=== PATIENT | male | born 1970 | race Caucasian/White ===

== ENCOUNTER 2022-12-18 13:14 | Inpatient (IN) | payer OTHER ==
[2022-12-18 14:01] VITALS: BMI 25.8
[2022-12-18] MEDS ORDERED: LOPERAMIDE HCL 2 MG CAPSULE PO PRN (17:28)
[2022-12-18] MEDS ORDERED: BISMUTH SUBSALICYLATE 524 MG/30 ML PO PRN (17:28)
[2022-12-18] MEDS ORDERED: P-EPHED 60MG/TRIPROLIDI 2.5MG TABLET PO PRN (17:28)
[2022-12-18] MEDS ORDERED: ONDANSETRON *ODT* 4 MG TABLET SL PRN (17:28)
[2022-12-18] MEDS ORDERED: MAGNESIUM HYDROX 2400MG/30ML ORAL SUSPENSION 30 ML CUP PO PRN (17:28)
[2022-12-18] MEDS ORDERED: guaiFENesin 600 MG TABLET.ER (FP) PO PRN (17:28)
[2022-12-18] MEDS ORDERED: MAG HYDROX/AL HYDROX/SIMETH 30 ML UNIT-DOSE CUP PO PRN (17:28)
[2022-12-18] MEDS ORDERED: IBUPROFEN 600 MG TABLET (FP) PO PRN (17:28)
[2022-12-18] MEDS ORDERED: BENZOCAINE/MENTHOL (CHLORASEPTIC ) LOZENGE MM PRN (17:28)
[2022-12-18] MEDS ORDERED: NICOTINE POLACRILEX 2 MG GUM BUC PRN (17:28)
[2022-12-18] MEDS ORDERED: POLYETHYLENE GLYCOL (HEALTHYLAX) 3350 17 GM PACKET PO PRN (17:28)
[2022-12-18] MEDS ORDERED: IBUPROFEN 400 MG TABLET (FP) PO PRN (17:28)
[2022-12-18] MEDS ORDERED: BENZONATATE 200 MG CAPSULE PO PRN (17:28)
[2022-12-18] MEDS ORDERED: ACETAMINOPHEN 325 MG TABLET (FP) PO PRN (17:28)
[2022-12-18] MEDS ORDERED: DICYCLOMINE HCL 10 MG CAPSULE PO PRN (17:28)
[2022-12-18] MEDS: LIDOCAINE PATCH REMOVAL MC SCH (21:27)
[2022-12-18] MEDS: THIAMINE HCL 100 MG TABLET (FP) PO SCH (22:16)
[2022-12-18] MEDS: MELATONIN 5 MG TABLETS PO SCH (22:16)
[2022-12-18] MEDS: METHOCARBAMOL 500 MG TABLET PO PRN (22:17)
[2022-12-19] MEDS ORDERED: diazePAM 5 MG TABLET PO PRN (09:16)
[2022-12-19] MEDS: LIDOCAINE 5% TOPICAL PATCH TP SCH (10:18)
[2022-12-19] MEDS: PRENATAL VITAMINS W/ FOLIC ACID TABLET (FP) PO SCH (10:18)
[2022-12-19] MEDS: NICOTINE 14 MG/24 HOURS TOPICAL PATCH TD SCH (10:19)
[2022-12-19] MEDS: diazePAM 5 MG TABLET PO SCH ×3 (10:28→22:11)
[2022-12-19 11:58] LABS: POTASSIUM 4.3 mmol/L (3.5-5.1)
[2022-12-19 11:59] LABS: HEMATOCRIT 45.4 % (35.4-49); HEMOGLOBIN 15.5 GM/dL (11.7-16.9); MCH 30.9 pg (25.7-33.7); MCHC 34.2 g/dl (32.0-35.9); MEAN CELL VOLUME 90.5 fl (80-96); MEAN PLT VOLUME 8.5 fl (7.5-11.1); PLATELET COUNT 295 10^3/uL (134-434); RBC 5.02 M/mm3 (4.00-5.60); RDW 14.2 % (11.9-15.9)
[2022-12-19 12:04] LABS: CALCIUM 8.9 mg/dL (8.5-10.1)
[2022-12-19 12:05] LABS: ALBUMIN 3.5 g/dl (3.4-5.0); BLOOD UREA NITROGEN 14.6 mg/dL (7-18)
[2022-12-19 12:08] LABS: CREATININE 0.7 mg/dL (0.55-1.3)
[2022-12-19 12:09] LABS: BILIRUBIN,TOTAL 0.6 mg/dL (0.2-1); TOT PROT 6.7 g/dl (6.4-8.2)
[2022-12-19] MEDS: LIDOCAINE PATCH REMOVAL MC SCH (22:08)
[2022-12-19] MEDS: METHOCARBAMOL 500 MG TABLET PO PRN (22:10)
[2022-12-19] MEDS: THIAMINE HCL 100 MG TABLET (FP) PO SCH (22:10)
[2022-12-19] MEDS: hydrOXYzine PAMOATE 25 MG CAPSULE (FP) PO PRN (22:10)
[2022-12-19] MEDS: MELATONIN 5 MG TABLETS PO SCH (22:11)
[2022-12-20] MEDS: diazePAM 5 MG TABLET PO SCH ×4 (05:35→22:19)
[2022-12-20] MEDS: LIDOCAINE 5% TOPICAL PATCH TP SCH (10:22)
[2022-12-20] MEDS: NICOTINE 14 MG/24 HOURS TOPICAL PATCH TD SCH (10:23)
[2022-12-20] MEDS: PRENATAL VITAMINS W/ FOLIC ACID TABLET (FP) PO SCH (10:23)
[2022-12-20] MEDS: LIDOCAINE PATCH REMOVAL MC SCH (22:19)
[2022-12-20] MEDS: MELATONIN 5 MG TABLETS PO SCH (22:20)
[2022-12-20] MEDS: THIAMINE HCL 100 MG TABLET (FP) PO SCH (22:20)
[2022-12-21] MEDS: diazePAM 5 MG TABLET PO SCH ×3 (05:41→22:14)
[2022-12-21] MEDS: LIDOCAINE 5% TOPICAL PATCH TP SCH (10:09)
[2022-12-21] MEDS: NICOTINE 14 MG/24 HOURS TOPICAL PATCH TD SCH (10:10)
[2022-12-21] MEDS: PRENATAL VITAMINS W/ FOLIC ACID TABLET (FP) PO SCH (10:10)
[2022-12-21] MEDS: THIAMINE HCL 100 MG TABLET (FP) PO SCH (22:14)
[2022-12-21] MEDS: MELATONIN 5 MG TABLETS PO SCH (22:14)
[2022-12-21] MEDS: LIDOCAINE PATCH REMOVAL MC SCH (22:15)
[2022-12-22] MEDS: diazePAM 5 MG TABLET PO SCH ×2 (05:43→17:27)
[2022-12-22] MEDS: PRENATAL VITAMINS W/ FOLIC ACID TABLET (FP) PO SCH (09:42)
[2022-12-22] MEDS: NICOTINE 14 MG/24 HOURS TOPICAL PATCH TD SCH (09:42)
[2022-12-22] MEDS: LIDOCAINE 5% TOPICAL PATCH TP SCH (09:42)
[2022-12-22] MEDS: hydrOXYzine PAMOATE 25 MG CAPSULE (FP) PO PRN ×2 (10:05→22:28)
[2022-12-22 17:11] VITALS: RESP 18
[2022-12-22] MEDS: THIAMINE HCL 100 MG TABLET (FP) PO SCH (22:26)
[2022-12-22] MEDS: MELATONIN 5 MG TABLETS PO SCH (22:26)
[2022-12-22] MEDS: LIDOCAINE PATCH REMOVAL MC SCH (22:27)
[2022-12-22] MEDS: METHOCARBAMOL 500 MG TABLET PO PRN (22:28)
[2022-12-23] MEDS ORDERED: diazePAM 5 MG TABLET PO ONE (06:00)
[2022-12-23 09:39] VITALS: BP 133/78; PULSE 104; TEMP 97.1
[2022-12-23] MEDS: LIDOCAINE 5% TOPICAL PATCH TP SCH (10:22)
[2022-12-23] MEDS: PRENATAL VITAMINS W/ FOLIC ACID TABLET (FP) PO SCH (10:25)
[2022-12-23] MEDS: NICOTINE 14 MG/24 HOURS TOPICAL PATCH TD SCH (10:25)
== END 2022-12-23 10:32 | disposition other institution (70) | DRG 775 ==
LOC: YASAS 13:14 → Y3N 17:44
PROVIDERS: ADMIT Allergy & Immunology; ATTEND Surgery
PROC: HZ2ZZZZ Detoxification Services for Substance Abuse Treatment (ICD-10-PCS; principal; 2022-12-18)
DX: F10.230 Alcohol dependence with withdrawal, uncomplicated (principal); F17.210 Nicotine dependence, cigarettes, uncomplicated
CPT/HCPCS: 36415; 80053; 85027; 86780; 87635

== ENCOUNTER 2023-02-09 19:56 | Inpatient (IN) | payer OTHER ==
[2023-02-09 21:14] VITALS: BMI 25.8
[2023-02-09] MEDS ORDERED: ONDANSETRON *ODT* 4 MG TABLET SL PRN (21:45)
[2023-02-09] MEDS ORDERED: POLYETHYLENE GLYCOL (HEALTHYLAX) 3350 17 GM PACKET PO PRN (21:45)
[2023-02-09] MEDS ORDERED: MAG HYDROX/AL HYDROX/SIMETH 30 ML UNIT-DOSE CUP PO PRN (21:45)
[2023-02-09] MEDS ORDERED: NALOXONE HCL 0.4 MG/ML VIAL IM PRN (21:45)
[2023-02-09] MEDS ORDERED: BENZONATATE 200 MG CAPSULE PO PRN (21:45)
[2023-02-09] MEDS ORDERED: IBUPROFEN 600 MG TABLET (FP) PO PRN (21:45)
[2023-02-09] MEDS ORDERED: MAGNESIUM HYDROX 2400MG/30ML ORAL SUSPENSION 30 ML CUP PO PRN (21:45)
[2023-02-09] MEDS ORDERED: hydrOXYzine PAMOATE 25 MG CAPSULE (FP) PO PRN (21:45)
[2023-02-09] MEDS ORDERED: DICYCLOMINE HCL 10 MG CAPSULE PO PRN (21:45)
[2023-02-09] MEDS ORDERED: LOPERAMIDE HCL 2 MG CAPSULE PO PRN (21:45)
[2023-02-09] MEDS ORDERED: IBUPROFEN 400 MG TABLET (FP) PO PRN (21:45)
[2023-02-09] MEDS ORDERED: NALOXONE HCL (KLOXXADO) 8 MG SPRAY NS PRN (21:45)
[2023-02-09] MEDS ORDERED: BISMUTH SUBSALICYLATE 524 MG/30 ML PO PRN (21:45)
[2023-02-10] MEDS: diazePAM 5 MG TABLET PO PRN (00:36)
[2023-02-10] MEDS: AMOXICILLIN 500 MG CAPSULE (FP) PO SCH ×5 (00:37→22:36)
[2023-02-10] MEDS: diazePAM 5 MG TABLET PO SCH ×6 (00:39→22:36)
[2023-02-10] MEDS: PRENATAL VITAMINS W/ FOLIC ACID TABLET (FP) PO SCH ×2 (00:40→10:34)
[2023-02-10] MEDS: MELATONIN 5 MG TABLETS PO SCH ×2 (00:40→22:36)
[2023-02-10] MEDS: NICOTINE 21 MG/24 HOURS TOPICAL PATCH TD SCH ×2 (00:40→10:34)
[2023-02-10] MEDS: THIAMINE HCL 100 MG TABLET (FP) PO SCH ×2 (00:40→22:36)
[2023-02-10] MEDS: ACETAMINOPHEN 325 MG TABLET (FP) PO PRN ×2 (05:23→10:35)
[2023-02-10] MEDS: BENZOCAINE/MENTHOL (CHLORASEPTIC ) LOZENGE MM PRN (06:38)
[2023-02-10 10:13] LABS: CHLORIDE 106 mmol/L (98-107); POTASSIUM 4.2 mmol/L (3.5-5.1); SODIUM 139 mmol/L (136-145)
[2023-02-10 10:20] LABS: ALBUMIN 3.2 g/dl (3.4-5.0); ANION GAP 8 mmol/L (4-13); BLOOD UREA NITROGEN 16.1 mg/dL (7-18); CALCIUM 8.8 mg/dL (8.5-10.1); CO2 25 mmol/L (21-32); GLUCOSE,RANDOM 126 mg/dL (74-106)
[2023-02-10 10:23] LABS: CREATININE 0.8 mg/dL (0.55-1.3); SGOT/AST 18 U/L (15-37); SGPT/ALT 23 U/L (13-61)
[2023-02-10 10:24] LABS: BILIRUBIN,TOTAL 0.4 mg/dL (0.2-1); TOT PROT 6.5 g/dl (6.4-8.2)
[2023-02-10 10:26] LABS: ALK PHOS 79 U/L (45-117)
[2023-02-10 10:44] LABS: HEMATOCRIT 44.6 % (35.4-49); HEMOGLOBIN 15.5 GM/dL (11.7-16.9); MCH 31.7 pg (25.7-33.7); MCHC 34.7 g/dl (32.0-35.9); MEAN CELL VOLUME 91.4 fl (80-96); MEAN PLT VOLUME 8.6 fl (7.5-11.1); PLATELET COUNT 353 10^3/uL (134-434); RBC 4.88 M/mm3 (4.00-5.60); RDW 13.7 % (11.9-15.9); WHITE BLOOD COUNT 8.2 K/mm3 (4.0-10.0)
[2023-02-10] MEDS: guaiFENesin 600 MG TABLET.ER (FP) PO PRN (23:28)
[2023-02-11] MEDS: AMOXICILLIN 500 MG CAPSULE (FP) PO SCH ×3 (05:26→22:11)
[2023-02-11] MEDS: diazePAM 5 MG TABLET PO SCH ×3 (05:27→22:10)
[2023-02-11] MEDS: guaiFENesin 600 MG TABLET.ER (FP) PO PRN ×2 (05:28→22:10)
[2023-02-11] MEDS: PRENATAL VITAMINS W/ FOLIC ACID TABLET (FP) PO SCH (10:29)
[2023-02-11] MEDS: NICOTINE 21 MG/24 HOURS TOPICAL PATCH TD SCH (10:29)
[2023-02-11] MEDS: BENZOCAINE/MENTHOL (CHLORASEPTIC ) LOZENGE MM PRN (13:45)
[2023-02-11] MEDS: MELATONIN 5 MG TABLETS PO SCH (22:10)
[2023-02-11] MEDS: THIAMINE HCL 100 MG TABLET (FP) PO SCH (22:10)
[2023-02-11] MEDS: METHOCARBAMOL 500 MG TABLET PO PRN (22:10)
[2023-02-12] MEDS: AMOXICILLIN 500 MG CAPSULE (FP) PO SCH ×3 (05:27→22:34)
[2023-02-12] MEDS: diazePAM 5 MG TABLET PO SCH ×2 (05:27→17:45)
[2023-02-12] MEDS: PRENATAL VITAMINS W/ FOLIC ACID TABLET (FP) PO SCH (10:25)
[2023-02-12] MEDS: NICOTINE 21 MG/24 HOURS TOPICAL PATCH TD SCH (10:25)
[2023-02-12] MEDS: diazePAM 5 MG TABLET PO PRN (10:26)
[2023-02-12] MEDS: MELATONIN 5 MG TABLETS PO SCH (22:34)
[2023-02-12] MEDS: METHOCARBAMOL 500 MG TABLET PO PRN (22:34)
[2023-02-12] MEDS: THIAMINE HCL 100 MG TABLET (FP) PO SCH (22:34)
[2023-02-13] MEDS: AMOXICILLIN 500 MG CAPSULE (FP) PO SCH (05:27)
[2023-02-13] MEDS ORDERED: diazePAM 5 MG TABLET PO ONE (06:00)
[2023-02-13 06:44] VITALS: RESP 18
[2023-02-13 09:25] VITALS: BP 112/75; PULSE 80; TEMP 97.6
[2023-02-13] MEDS: PRENATAL VITAMINS W/ FOLIC ACID TABLET (FP) PO SCH (10:20)
[2023-02-13] MEDS: NICOTINE 21 MG/24 HOURS TOPICAL PATCH TD SCH (10:20)
== END 2023-02-13 10:03 | disposition home or self-care (01) | DRG 774 ==
LOC: YASAS 19:56 → Y3N 22:44
PROVIDERS: ADMIT Allergy & Immunology; ATTEND Surgery
PROC: HZ2ZZZZ Detoxification Services for Substance Abuse Treatment (ICD-10-PCS; principal; 2023-02-09)
DX: F10.230 Alcohol dependence with withdrawal, uncomplicated (principal); F14.10 Cocaine abuse, uncomplicated; F17.210 Nicotine dependence, cigarettes, uncomplicated; J06.9 Acute upper respiratory infection, unspecified; R73.9 Hyperglycemia, unspecified; Z59.01 Sheltered homelessness
CPT/HCPCS: 36415; 80053; 80307; 82947; 83036; 85027; 86780; 87635; 87811

== ENCOUNTER 2023-04-20 16:40 | Inpatient (IN) | payer OTHER ==
[2023-04-20 18:19] VITALS: BMI 27.3
[2023-04-20] MEDS ORDERED: POLYETHYLENE GLYCOL (HEALTHYLAX) 3350 17 GM PACKET PO PRN (19:03)
[2023-04-20] MEDS ORDERED: BENZONATATE 200 MG CAPSULE PO PRN (19:03)
[2023-04-20] MEDS ORDERED: LOPERAMIDE HCL 2 MG CAPSULE PO PRN (19:03)
[2023-04-20] MEDS ORDERED: IBUPROFEN 400 MG TABLET (FP) PO PRN (19:03)
[2023-04-20] MEDS ORDERED: ACETAMINOPHEN 325 MG TABLET (FP) PO PRN (19:03)
[2023-04-20] MEDS ORDERED: hydrOXYzine PAMOATE 25 MG CAPSULE (FP) PO PRN (19:03)
[2023-04-20] MEDS ORDERED: NALOXONE HCL 0.4 MG/ML VIAL IM PRN (19:03)
[2023-04-20] MEDS ORDERED: MAGNESIUM HYDROX 2400MG/30ML ORAL SUSPENSION 30 ML CUP PO PRN (19:03)
[2023-04-20] MEDS ORDERED: DICYCLOMINE HCL 10 MG CAPSULE PO PRN (19:03)
[2023-04-20] MEDS ORDERED: BISMUTH SUBSALICYLATE 524 MG/30 ML PO PRN (19:03)
[2023-04-20] MEDS ORDERED: ONDANSETRON *ODT* 4 MG TABLET SL PRN (19:03)
[2023-04-20] MEDS ORDERED: NALOXONE HCL (KLOXXADO) 8 MG SPRAY NS PRN (19:03)
[2023-04-20] MEDS ORDERED: MAG HYDROX/AL HYDROX/SIMETH 30 ML UNIT-DOSE CUP PO PRN (19:03)
[2023-04-20] MEDS ORDERED: IBUPROFEN 600 MG TABLET (FP) PO PRN (19:03)
[2023-04-20] MEDS: guaiFENesin 600 MG TABLET.ER (FP) PO PRN (20:29)
[2023-04-20] MEDS: NICOTINE 21 MG/24 HOURS TOPICAL PATCH TD SCH (20:40)
[2023-04-20] MEDS ORDERED: OSELTAMIVIR PHOSPHATE 75 MG CAPSULE PO SCH (22:00)
[2023-04-20] MEDS: THIAMINE HCL 100 MG TABLET (FP) PO SCH (22:45)
[2023-04-20] MEDS: MELATONIN 5 MG TABLETS PO SCH (22:45)
[2023-04-20] MEDS: diazePAM 5 MG TABLET PO SCH (22:53)
[2023-04-21] MEDS: diazePAM 5 MG TABLET PO SCH ×4 (05:29→22:49)
[2023-04-21] MEDS: PRENATAL VITAMINS W/ FOLIC ACID TABLET (FP) PO SCH (10:01)
[2023-04-21] MEDS: NICOTINE 21 MG/24 HOURS TOPICAL PATCH TD SCH (10:01)
[2023-04-21 11:22] LABS: CHLORIDE 107 mmol/L (98-107); POTASSIUM 3.8 mmol/L (3.5-5.1); SODIUM 141 mmol/L (136-145)
[2023-04-21 11:30] LABS: HEMATOCRIT 43.7 % (35.4-49); HEMOGLOBIN 14.7 GM/dL (11.7-16.9); MCH 30.7 pg (25.7-33.7); MCHC 33.5 g/dl (32.0-35.9); MEAN CELL VOLUME 91.6 fl (80-96); MEAN PLT VOLUME 9.1 fl (7.5-11.1); PLATELET COUNT 310 10^3/uL (134-434); RBC 4.78 M/mm3 (4.00-5.60); RDW 13.3 % (11.9-15.9); WHITE BLOOD COUNT 9.9 K/mm3 (4.0-10.0)
[2023-04-21 11:41] LABS: ANION GAP 8 mmol/L (4-13); BLOOD UREA NITROGEN 8.2 mg/dL (7-18); CALCIUM 9.4 mg/dL (8.5-10.1); CO2 26 mmol/L (21-32); GLUCOSE,RANDOM 176 mg/dL (74-106)
[2023-04-21 11:44] LABS: CREATININE 0.7 mg/dL (0.55-1.3); SGOT/AST 22 U/L (15-37); SGPT/ALT 37 U/L (13-61)
[2023-04-21 11:46] LABS: ALK PHOS 72 U/L (45-117); BILIRUBIN,TOTAL 0.2 mg/dL (0.2-1); TOT PROT 6.3 g/dl (6.4-8.2)
[2023-04-21] MEDS: LACTULOSE 20 GM/30 ML UDC (FOR ORAL USE ONLY) PO SCH ×2 (15:51→22:50)
[2023-04-21] MEDS: THIAMINE HCL 100 MG TABLET (FP) PO SCH (22:49)
[2023-04-21] MEDS: METHOCARBAMOL 500 MG TABLET PO PRN (22:49)
[2023-04-21] MEDS: MELATONIN 5 MG TABLETS PO SCH (22:50)
[2023-04-22] MEDS: LACTULOSE 20 GM/30 ML UDC (FOR ORAL USE ONLY) PO SCH ×3 (05:34→22:31)
[2023-04-22] MEDS: diazePAM 5 MG TABLET PO SCH ×3 (05:34→22:30)
[2023-04-22] MEDS: BENZOCAINE/MENTHOL (CHLORASEPTIC ) LOZENGE MM PRN ×2 (06:34→23:30)
[2023-04-22] MEDS: diazePAM 5 MG TABLET PO PRN (10:47)
[2023-04-22] MEDS: METHOCARBAMOL 500 MG TABLET PO PRN ×2 (10:48→22:32)
[2023-04-22] MEDS: NICOTINE 21 MG/24 HOURS TOPICAL PATCH TD SCH (10:48)
[2023-04-22] MEDS: PRENATAL VITAMINS W/ FOLIC ACID TABLET (FP) PO SCH (10:48)
[2023-04-22] MEDS: MELATONIN 5 MG TABLETS PO SCH (22:30)
[2023-04-22] MEDS: THIAMINE HCL 100 MG TABLET (FP) PO SCH (22:31)
[2023-04-22] MEDS: guaiFENesin 600 MG TABLET.ER (FP) PO PRN (23:30)
[2023-04-23] MEDS: diazePAM 5 MG TABLET PO SCH ×2 (05:33→17:24)
[2023-04-23] MEDS: LACTULOSE 20 GM/30 ML UDC (FOR ORAL USE ONLY) PO SCH ×3 (05:33→22:29)
[2023-04-23] MEDS: METHOCARBAMOL 500 MG TABLET PO PRN ×2 (05:34→22:03)
[2023-04-23] MEDS: NICOTINE 21 MG/24 HOURS TOPICAL PATCH TD SCH (10:16)
[2023-04-23] MEDS: PRENATAL VITAMINS W/ FOLIC ACID TABLET (FP) PO SCH (10:16)
[2023-04-23] MEDS: diazePAM 5 MG TABLET PO PRN (10:17)
[2023-04-23] MEDS: BENZOCAINE 20 % GEL TUBE MM SCH ×2 (15:29→19:45)
[2023-04-23] MEDS: THIAMINE HCL 100 MG TABLET (FP) PO SCH (22:03)
[2023-04-23] MEDS: MELATONIN 5 MG TABLETS PO SCH (22:03)
[2023-04-24] MEDS: BENZOCAINE 20 % GEL TUBE MM SCH ×2 (02:35→09:06)
[2023-04-24] MEDS: LACTULOSE 20 GM/30 ML UDC (FOR ORAL USE ONLY) PO SCH (05:30)
[2023-04-24] MEDS ORDERED: diazePAM 5 MG TABLET PO ONE (06:00)
[2023-04-24 10:03] VITALS: BP 108/66; PULSE 86; RESP 17; TEMP 99.3
[2023-04-24] MEDS: PRENATAL VITAMINS W/ FOLIC ACID TABLET (FP) PO SCH (10:06)
[2023-04-24] MEDS: NICOTINE 21 MG/24 HOURS TOPICAL PATCH TD SCH (10:07)
== END 2023-04-24 10:52 | disposition other institution (70) | DRG 773 ==
LOC: YASAS 16:40 → Y3N 19:38
PROVIDERS: ADMIT Allergy & Immunology; ATTEND Surgery
PROC: HZ2ZZZZ Detoxification Services for Substance Abuse Treatment (ICD-10-PCS; principal; 2023-04-20)
DX: F10.230 Alcohol dependence with withdrawal, uncomplicated (principal); F11.10 Opioid abuse, uncomplicated; F14.10 Cocaine abuse, uncomplicated; F12.10 Cannabis abuse, uncomplicated; F17.210 Nicotine dependence, cigarettes, uncomplicated; E72.20 Disorder of urea cycle metabolism, unspecified; J06.9 Acute upper respiratory infection, unspecified; Z59.01 Sheltered homelessness
CPT/HCPCS: 0241U-QW; 36415; 80053; 80307; 82140; 85027; 86780; 87635; 87811

== ENCOUNTER 2023-06-01 11:17 | Inpatient (IN) | payer OTHER ==
[2023-06-01 11:49] VITALS: BMI 25.5
[2023-06-01] MEDS ORDERED: POLYETHYLENE GLYCOL (HEALTHYLAX) 3350 17 GM PACKET PO PRN (14:11)
[2023-06-01] MEDS ORDERED: BENZOCAINE/MENTHOL (CHLORASEPTIC ) LOZENGE MM PRN (14:11)
[2023-06-01] MEDS ORDERED: BISMUTH SUBSALICYLATE 262 MG/15 ML BTL PO PRN (14:11)
[2023-06-01] MEDS ORDERED: hydrOXYzine PAMOATE 25 MG CAPSULE (FP) PO PRN (14:11)
[2023-06-01] MEDS ORDERED: DICYCLOMINE HCL 10 MG CAPSULE PO PRN (14:11)
[2023-06-01] MEDS ORDERED: NALOXONE HCL (KLOXXADO) 8 MG SPRAY NS PRN (14:11)
[2023-06-01] MEDS ORDERED: IBUPROFEN 600 MG TABLET (FP) PO PRN (14:11)
[2023-06-01] MEDS ORDERED: guaiFENesin 600 MG TABLET.ER (FP) PO PRN (14:11)
[2023-06-01] MEDS ORDERED: MAG HYDROX/AL HYDROX/SIMETH 30 ML UNIT-DOSE CUP PO PRN (14:11)
[2023-06-01] MEDS ORDERED: IBUPROFEN 400 MG TABLET (FP) PO PRN (14:11)
[2023-06-01] MEDS ORDERED: MAGNESIUM HYDROX 2400MG/30ML ORAL SUSPENSION 30 ML CUP PO PRN (14:11)
[2023-06-01] MEDS ORDERED: BENZONATATE 200 MG CAPSULE PO PRN (14:11)
[2023-06-01] MEDS ORDERED: LOPERAMIDE HCL 2 MG CAPSULE PO PRN (14:11)
[2023-06-01] MEDS ORDERED: ONDANSETRON *ODT* 4 MG TABLET SL PRN (14:11)
[2023-06-01] MEDS ORDERED: NALOXONE HCL 0.4 MG/ML VIAL IM PRN (14:11)
[2023-06-01] MEDS ORDERED: NICOTINE 14 MG/24 HOURS TOPICAL PATCH TD ONE (15:59)
[2023-06-01] MEDS ORDERED: PRENATAL VITAMINS W/ FOLIC ACID TABLET (FP) PO ONE (16:00)
[2023-06-01] MEDS: NICOTINE 14 MG/24 HOURS TOPICAL PATCH TD SCH (16:01)
[2023-06-01] MEDS: PRENATAL VITAMINS W/ FOLIC ACID TABLET (FP) PO SCH (16:01)
[2023-06-01] MEDS ORDERED: ACETAMINOPHEN 325 MG TABLET (FP) ONE (16:05)
[2023-06-01] MEDS: ACETAMINOPHEN 325 MG TABLET (FP) PO PRN (16:06)
[2023-06-01] MEDS ORDERED: LORazepam 2 MG TABLET ONE (17:17)
[2023-06-01] MEDS: LORazepam 2 MG TABLET PO SCH (17:20)
[2023-06-01] MEDS: MELATONIN 5 MG TABLETS PO SCH (22:09)
[2023-06-01] MEDS: THIAMINE HCL 100 MG TABLET (FP) PO SCH (22:09)
[2023-06-01] MEDS: OXYMETAZOLINE 0.05% NASAL SOLUTION 15 ML BOTTLE NS PRN (22:09)
[2023-06-01] MEDS: LIDOCAINE PATCH REMOVAL MC SCH (22:10)
[2023-06-02] MEDS: LIDOCAINE 5% TOPICAL PATCH TP SCH (10:17)
[2023-06-02] MEDS: METHOCARBAMOL 500 MG TABLET PO PRN (10:18)
[2023-06-02 10:32] LABS: CHLORIDE 105 mmol/L (98-107); HEMATOCRIT 43.4 % (35.4-49); HEMOGLOBIN 14.4 GM/dL (11.7-16.9); MCHC 33.1 g/dl (32.0-35.9); MEAN CELL VOLUME 93.6 fl (80-96); MEAN PLT VOLUME 8.5 fl (7.5-11.1); PLATELET COUNT 346 10^3/uL (134-434); POTASSIUM 4.2 mmol/L (3.5-5.1); RBC 4.64 M/mm3 (4.00-5.60); RDW 13.6 % (11.9-15.9); SODIUM 141 mmol/L (136-145); WHITE BLOOD COUNT 6.2 K/mm3 (4.0-10.0)
[2023-06-02 10:34] LABS: ALBUMIN 3.3 g/dl (3.4-5.0); BLOOD UREA NITROGEN 16.7 mg/dL (7-18); CALCIUM 8.9 mg/dL (8.5-10.1); GLUCOSE,RANDOM 84 mg/dL (74-106)
[2023-06-02 10:35] LABS: ANION GAP 6 mmol/L (4-13); CO2 30 mmol/L (21-32)
[2023-06-02 10:37] LABS: CREATININE 0.7 mg/dL (0.55-1.3); SGOT/AST 14 U/L (15-37); SGPT/ALT 24 U/L (13-61)
[2023-06-02 10:40] LABS: BILIRUBIN,TOTAL 0.4 mg/dL (0.2-1); TOT PROT 6.6 g/dl (6.4-8.2)
[2023-06-02 10:41] LABS: ALK PHOS 60 U/L (45-117)
[2023-06-03] MEDS: LORazepam 1 MG TABLET PO SCH (05:25)
[2023-06-03] MEDS: LORazepam 1 MG TABLET PO PRN (14:08)
[2023-06-04] MEDS ORDERED: LORazepam 0.5 MG TABLET PO PRN
[2023-06-04] MEDS: LORazepam 0.5 MG TABLET PO SCH (05:30)
[2023-06-05] MEDS: LORazepam 0.5 MG TABLET PO ONE (05:58)
[2023-06-05 06:29] VITALS: BP 135/65; PULSE 75; RESP 18; TEMP 97.6
== END 2023-06-05 09:25 | disposition home or self-care (01) | DRG 774 ==
LOC: YASAS 11:17 → Y6N 16:13
PROVIDERS: ADMIT Allergy & Immunology; ATTEND Surgery
PROC: HZ2ZZZZ Detoxification Services for Substance Abuse Treatment (ICD-10-PCS; principal; 2023-06-01)
DX: F10.230 Alcohol dependence with withdrawal, uncomplicated (principal); F14.10 Cocaine abuse, uncomplicated; F12.10 Cannabis abuse, uncomplicated; F17.210 Nicotine dependence, cigarettes, uncomplicated; Z59.01 Sheltered homelessness
CPT/HCPCS: 36415; 80053; 80307; 85027; 86780; 87635